=== PATIENT | female | born 1955 | race Caucasian/White ===

== ENCOUNTER 2017-09-01 08:27 | Day surgery (SDC) | payer OTHER ==
[~2017-09-01] VITALS: Ht 165.1 cm; Wt 65.3 kg
[~2017-09-01 08:27] MED LIST: ALMOTRIPTAN M12.5 MG PO; ANTIDEPRESSENT; AXERT; DULOXETINE HCL30 MG PO; FOLIC ACID1 M1 PO; LISINOPRIL10 MG PO; PREDNISONE PO; TOPAMAX50 M1 PO; VITAMIN B121000 MCG PO
[2017-09-01] MEDS ORDERED: PERCOCET 10/31 COMBO PO (13:52)
[2017-09-01] MEDS ORDERED: PHENERGAN25 MG/TAB PO (14:45)
[2017-09-01 15:28] VITALS: BP 112/65
== END 2017-09-01 15:23 | disposition home or self-care (01) | DRG 502 ==
LOC: ORM 08:27
PROVIDERS: ATTEND Orthopaedic Surgery
PROC: 0LQ14ZZ Repair Right Shoulder Tendon, Percutaneous Endoscopic Approach (ICD-10-PCS; principal; 2017-09-01)
PROC: 0LS34ZZ Reposition Right Upper Arm Tendon, Percutaneous Endoscopic Approach (ICD-10-PCS; 2017-09-01)
PROC: 0RHJ44Z Insertion of Internal Fixation Device into Right Shoulder Joint, Percutaneous Endoscopic Approach (ICD-10-PCS; 2017-09-01)
PROC: 0RNJ4ZZ Release Right Shoulder Joint, Percutaneous Endoscopic Approach (ICD-10-PCS; 2017-09-01)
DX: M75.111 Incomplete rotator cuff tear or rupture of right shoulder, not specified as traumatic (principal); S43.431A Superior glenoid labrum lesion of right shoulder, initial encounter; M75.51 Bursitis of right shoulder; M94.211 Chondromalacia, right shoulder; S43.491A Other sprain of right shoulder joint, initial encounter; E07.9 Disorder of thyroid, unspecified; I10 Essential (primary) hypertension; F17.210 Nicotine dependence, cigarettes, uncomplicated; X58.XXXA Exposure to other specified factors, initial encounter
CPT/HCPCS: J1100; J2710